=== PATIENT | female | born 1990 | race Two or more races ===

== ENCOUNTER 2016-12-31 16:12 | Emergency (ER) | payer OTHER ==
[2016-12-31 17:44] LABS: ABSOLUTE EOSINOPHILS # (AUTO) 0.3 10^3/uL (0.0-0.6); ABSOLUTE LYMPHOCYTES (AUTO) 2.5 10^3/uL (0.5-4.7); ABSOLUTE MONOCYTES (AUTO) 0.4 10^3/uL (0.1-1.4); ABSOLUTE NEUT (AUTO) 6.2 10^3/uL (1.7-8.2); APPEARANCE,URINE SLIGHTLY-CLOUDY; BASOPHILS % (AUTO) 0.3 % (0-2); BILIRUBIN,URINE NEGATIVE (NEGATIVE); EOSINOPHILS % (AUTO) 2.9 % (0-6); GLUCOSE, URINE NEGATIVE (NEGATIVE); HEMATOCRIT 38.4 % (36.0-47.0); HEMOGLOBIN 13.3 g/dL (12.0-15.5); HGB HCT DIFFERENCE 1.5; KETONES,URINE NEGATIVE (NEGATIVE); LEUKOCYTE ESTERASE,URINE NEGATIVE (NEGATIVE); LYMPHOCYTES % (AUTO) 26.7 % (13-45); MEAN CORPUSCULAR HEMOGLOBIN 30.2 pg (27.0-33.4); MEAN CORPUSCULAR HGB CONC 34.6 g/dL (32.0-36.0); MEAN CORPUSCULAR VOLUME 87 fl (80-97); MONOCYTES % (AUTO) 4.6 % (3-13); NITRITE,URINE NEGATIVE (NEGATIVE); PROTEIN,URINE NEGATIVE (NEGATIVE); RED CELL DISTRIBUTION WIDTH 13.4 % (11.5-14.0); SEGMENTED NEUTROPHILS % (AUTO) 65.5 % (42-78); UROBILINOGEN,URINE NEGATIVE mg/dL (<2.0); WHITE BLOOD COUNT 9.5 10^3/uL (4.0-10.5)
[2016-12-31 17:59] LABS: ALANINE AMINOTRANSFERASE 42 U/L (9-52); ALBUMIN 4.6 g/dL (3.5-5.0); ALKALINE PHOSPHATASE 66 U/L (38-126); ANION GAP 14 (5-19); ASPARTATE AMINO TRANSFERASE 25 U/L (14-36); BILIRUBIN,DIRECT 0.4 mg/dL (0.0-0.4); BILIRUBIN,TOTAL 0.5 mg/dL (0.2-1.3); BLOOD UREA NITROGEN 7 mg/dL (7-20); CALCIUM 9.9 mg/dL (8.4-10.2); CARBON DIOXIDE 25 mmol/L (22-30); CHLORIDE 101 mmol/L (98-107); CREATININE RESULT 0.51 mg/dL (0.52-1.25); GLUCOSE 87 mg/dL (75-110); POTASSIUM 4.1 mmol/L (3.6-5.0); SODIUM 140.1 mmol/L (137-145); TOTAL PROTEIN 7.5 g/dL (6.3-8.2)
--- NOTE | 2016-12-31 18:25 | RADIOLOGY REPORT (SQ) ---
EXAM DESCRIPTION: U/S OB TRANSVAG W/DOPPLER COMPLETED DATE/TIME: 12/31/2016 6:03 pm REASON FOR STUDY: abd pain +preg COMPARISON: None. TECHNIQUE: Transvaginal static and realtime grayscale images acquired of the pelvis. Additional sloane cted spectral and color Doppler images recorded. All images stored on PACs. bHCG: Pending. LIMITATIONS: None. FINDINGS: FETUS: Living intrauterine . EGA: 6 weeks, 5 days TOR: 08/21/2017 FHR: 126 beats per minute. SUBCHORIONIC BLEED: No SIZE OF BLEED: Not applicable. UTERUS: No masses. No anomalies. CERVICAL LENGTH: 3.2 cm Closed. RIGHT ADNEXA: Ovary not identified. No adnexal free fluid. No adnexal masses. LEFT ADNEXA: Ovary not identified. No adnexal free fluid. No adnexal masses. FREE FLUID: None. OTHER: No other significant finding. IMPRESSION: LIVING INTRAUTERINE . EGA 6 weeks, 5 days Trimester of : First - 0 to 13 weeks. TECHNICAL DOCUMENTATION: JOB ID: [id number] [employer]- All Rights Reserved
[2016-12-31 19:02] VITALS: BP 150/74
--- NOTE | 2016-12-31 19:06 | ER Document Report ---
ED General - General Chief Complaint: Vag Bleeding, +preg <12wks Stated Complaint: PELVIC PAIN Time Seen by Provider: 12/31/16 16:47 TRAVEL OUTSIDE OF THE [place] IN LAST 30 DAYS: No - HPI Patient complains to provider of: Vaginal bleeding left lower pelvic pain Notes: Patient coming of the symptoms ongoing for approximately 2 3 days. Patient states she denies he is patient denies any fever chills nausea vomiting diarrhea. Denies any vaginal discharge states slight vaginal bleeding. Patient otherwise does not have ultrasound to confirm IUP this patient is a . - Related Data Allergies/Adverse Reactions: hydrocodone Allergy (Verified 12/31/16 16:51) morphine Allergy (Verified 12/31/16 16:51) peanut butter Allergy (Uncoded 12/31/16 16:51) Past Medical History - General Last Menstrual Period: 11/11/16 - Social History Smoking Status: Never Smoker Frequency of alcohol use: None Drug Abuse: None Family History: Reviewed & Not Pertinent Patient has suicidal ideation: No Patient has homicidal ideation: No Renal/ Medical History: Denies: Hx Peritoneal Dialysis Review of Systems - Review of Systems Constitutional: No symptoms reported EENT: No symptoms reported Cardiovascular: No symptoms reported Respiratory: No symptoms reported Gastrointestinal: Abdominal pain Genitourinary: No symptoms reported Female Genitourinary: No symptoms reported Musculoskeletal: No symptoms reported Skin: No symptoms reported Hematologic/Lymphatic: No symptoms reported Neurological/Psychological: No symptoms reported Physical Exam - Vital signs Vitals: Temp Pulse Resp BP Pulse Ox 99.4 F 88 16 134/72 H 100 12/31/16 16:27 12/31/16 16:27 12/31/16 16:27 12/31/16 16:27 12/31/16 16:27 Interpretation: Normal - General General appearance: Appears well, Alert - HEENT Head: Normocephalic, Atraumatic Eyes: Normal Pupils: PERRL - Respiratory Respiratory status: No respiratory distress Chest status: Nontender Breath sounds: Normal Chest palpation: Normal - Cardiovascular Rhythm: Regular Heart sounds: Normal auscultation Murmur: No - Abdominal Inspection: Normal Distension: No distension Bowel sounds: Normal Tenderness: Nontender Organomegaly: No organomegaly - Back Back: Normal, Nontender - Extremities General upper extremity: Normal inspection, Nontender, Normal color, Normal ROM , Normal temperature General lower extremity: Normal inspection, Nontender, Normal color, Normal ROM , Normal temperature, Normal weight bearing. No: Kathryn's sign - Neurological Neuro grossly intact: Yes Cognition: Normal Orientation: AAOx4 Evelio Coma Scale Eye Opening: Spontaneous [place] Coma Scale Verbal: Oriented Evelio Coma Scale Motor: Obeys Commands Evelio Coma Scale Total: 15 Speech: Normal Motor strength normal: LUE, RUE, LLE, RLE Sensory: Normal - Psychological Associated symptoms: Normal affect, Normal mood - Skin Skin Temperature: Warm Skin Moisture: Dry Skin Color: Normal Course - Re-evaluation Re-evalutation: 12/31/16 20:57 Patient coming in for evaluation of abdominal pain and . Patient states slight vaginal bleeding. Ultrasound does not show any acute abnormality. Patient will be discharged on follow-up with primary care physician. Patient is to continue her vitamins. - Vital Signs Vital signs: Temp Pulse Resp BP Pulse Ox 99.4 F 95 18 150/74 H 100 12/31/16 19:01 12/31/16 19:01 12/31/16 19:01 12/31/16 19:01 12/31/16 19:01 - Laboratory Result Diagrams: 12/31/16 17:00 12/31/16 17:00 Laboratory results interpreted by me: 12/31/16 17:00 Creatinine 0.51 L Beta HCG, Quant 04955.00 H Discharge - Discharge Clinical Impression: Bleeding in early Disposition: HOME, SELF-CARE Instructions: Bleeding During Early ([facility]), Pelvic Pain in ( [facility]) Additional Instructions: Your ultrasound does not show any abnormalities. Your lab work also does not show any abnormalities. More likely her pain is related to round ligament pain or your body is getting used to a growing fetus in your body. He may take the medication as prescribed for nausea he may also refer to the information below. For nausea and vomiting during I recomment: Start with 10-12.5 mg of pyridoxine (vitamin B6) three times a day for 2 days. If not fully effective, Increase to 12.5 mg of pyridoxine four times a day for 2 days. If not fully effective, Increase to 25 mg of pyridoxine three times a day for 2 days. If not fully effective, Continue 25 mg pyridoxine 3 times a day, and add 12.5 mg of doxylamine before bedtime each day for 2 days. If not fully effective, Continue 25 mg pyridoxine 3 times a day, and take 12.5 mg of doxylamine twice a day. If not fully effective, Continue 25 mg pyridoxine 3 times a day, and take 12.5 mg of doxylamine three times a day. If not fully effective, Continue 25 mg pyridoxine 3 times a day, and 12.5 mg of doxylamine 3 times a day , while adding Emetrol, one to two tablespoons (15-30 cc) taken once or twice a day as needed. (Emetrol is an [id number] mixture of sugar syrups and phosphoric acid [phosphorylated carbohydrate solution]) that acts by soothing the actual wall of the gastrointestinal tract). If not fully effective, Consult with your doctor. Prescriptions: Metoclopramide HCl [Reglan] 5 mg PO Q6 #30 tablet
== END 2016-12-31 19:07 | disposition home or self-care (01) ==
LOC: ER 16:12
DX: O20.9 Hemorrhage in early pregnancy, unspecified (principal); Z88.6 Allergy status to analgesic agent; Z91.010 Allergy to peanuts
CPT/HCPCS: 36415; 76817; 80053; 81001; 83690; 84702; 85025; 93976; 99284

== ENCOUNTER 2017-03-17 17:53 | Emergency (ER) | payer OTHER ==
--- NOTE | 2017-03-17 19:22 | ER Document Report ---
ED Medical Screen (RME) - General Chief Complaint: Abdominal Pain Stated Complaint: ABDOMINAL PAIN Time Seen by Provider: 03/17/17 19:16 Mode of Arrival: Ambulatory Information source: Patient Notes: 26 yo female presents to ed for chest and back pain started yesterday abdominal pain started today sharp, no vaginal bleeding, states she was leaking something yesterday not sure if urine. still a little today, diagnosed flu on monday. 17 weeks . This patient was seen in E for triage, will have complete assessment by another provider. TRAVEL OUTSIDE OF THE [place] IN LAST 30 DAYS: No - Related Data Allergies/Adverse Reactions: hydrocodone Allergy (Verified 12/31/16 16:51) morphine Allergy (Verified 12/31/16 16:51) peanut butter Allergy (Uncoded 12/31/16 16:51) Past Medical History Renal/ Medical History: Denies: Hx Peritoneal Dialysis Physical Exam - Vital signs Vitals: Temp Pulse Resp BP Pulse Ox 98.5 F 93 18 109/59 L 99 03/17/17 18:15 03/17/17 18:15 03/17/17 18:15 03/17/17 18:15 03/17/17 18:15 Course - Vital Signs Vital signs: Temp Pulse Resp BP Pulse Ox 98.5 F 93 18 109/59 L 99 03/17/17 18:15 03/17/17 18:15 03/17/17 18:15 03/17/17 18:15 03/17/17 18:15
[2017-03-17 20:22] LABS: ABSOLUTE EOSINOPHILS # (AUTO) 0.1 10^3/uL (0.0-0.6); ABSOLUTE LYMPHOCYTES (AUTO) 1.6 10^3/uL (0.5-4.7); ABSOLUTE MONOCYTES (AUTO) 0.4 10^3/uL (0.1-1.4); ABSOLUTE NEUT (AUTO) 2.8 10^3/uL (1.7-8.2); BASOPHILS % (AUTO) 0.1 % (0-2); EOSINOPHILS % (AUTO) 1.8 % (0-6); HEMATOCRIT 31.7 % (36.0-47.0); HEMOGLOBIN 11.2 g/dL (12.0-15.5); LYMPHOCYTES % (AUTO) 32.4 % (13-45); MEAN CORPUSCULAR HEMOGLOBIN 30.8 pg (27.0-33.4); MEAN CORPUSCULAR HGB CONC 35.3 g/dL (32.0-36.0); MEAN CORPUSCULAR VOLUME 87 fl (80-97); MONOCYTES % (AUTO) 7.4 % (3-13); PLATELET COUNT 177 10^3/uL (150-450); RED BLOOD COUNT 3.64 10^6/uL (3.72-5.28); RED CELL DISTRIBUTION WIDTH 14.3 % (11.5-14.0); SEGMENTED NEUTROPHILS % (AUTO) 58.3 % (42-78); TOTAL CELLS COUNTED % (AUTO) 100 %; WHITE BLOOD COUNT 4.9 10^3/uL (4.0-10.5)
[2017-03-17 20:26] LABS: APPEARANCE,URINE CLEAR; BILIRUBIN,URINE NEGATIVE (NEGATIVE); COLOR,URINE STRAW; GLUCOSE, URINE NEGATIVE (NEGATIVE); KETONES,URINE NEGATIVE (NEGATIVE); LEUKOCYTE ESTERASE,URINE NEGATIVE (NEGATIVE); NITRITE,URINE NEGATIVE (NEGATIVE); PROTEIN,URINE NEGATIVE (NEGATIVE); URINE SPECIFIC GRAVITY 1.005; UROBILINOGEN,URINE NEGATIVE mg/dL (<2.0)
[2017-03-17 20:44] LABS: ALANINE AMINOTRANSFERASE 27 U/L (9-52); ALBUMIN 3.7 g/dL (3.5-5.0); ALKALINE PHOSPHATASE 45 U/L (38-126); ANION GAP 8 (5-19); ASPARTATE AMINO TRANSFERASE 28 U/L (14-36); BLOOD UREA NITROGEN 3 mg/dL (7-20); CALCIUM 8.7 mg/dL (8.4-10.2); CARBON DIOXIDE 24 mmol/L (22-30); CHLORIDE 105 mmol/L (98-107); GLUCOSE 81 mg/dL (75-110); POTASSIUM 3.9 mmol/L (3.6-5.0); SODIUM 137.4 mmol/L (137-145); TOTAL PROTEIN 5.9 g/dL (6.3-8.2)
--- NOTE | 2017-03-17 20:44 | RADIOLOGY REPORT (SQ) ---
EXAM DESCRIPTION: U/S OB 14+ TA/1 GEST W/DOPPLER COMPLETED DATE/TIME: 03/17/2017 8:35 pm REASON FOR STUDY: 17 weeks leaking something COMPARISON: 12/31/2016. TECHNIQUE: Static and Dynamic grayscale imaging performed of gravid uterus using transabdominal appr oach. Additional selected color Doppler and spectral images recorded. All stored on PACS. LIMITATIONS: None. FINDINGS: EGA: 18 week. TOR: 08/18/2017. EFW: 209 grams PERCENTILE: Not applicable. Fetus less than or equal to 20 weeks gestation. VINI: Adequate amount. PLACENTA: Anterior. GRADE: I PRESENTATION: Cephalic. ANATOMY: HEART RATE: 171 beats per minute. FOUR CHAMBER HEART: Visualized. THREE VESSEL CORD: Yes. CORD INSERTION: Poorly visualized. KIDNEYS AND BLADDER: Kidneys poorly visualized. STOMACH: Visualized. Appears normal. SPINE: Poorly visualized. BRAIN AND LATERAL VENTRICLES: Poorly visualized. OTHER: No other significant finding. MATERNAL ADNEXA: Maternal ovaries not visualized. CERVICAL LENGTH: 2.9 cm. Closed. OTHER: No other significant finding. IMPRESSION: LIVING INTRAUTERINE . ESTIMATED GESTATIONAL AGE 18 WEEK. LIMITED VISUALIZATION OF THE ANATOMY WITH NO GROSS ABNORMALITIES. Trimester of : Second trimester - 13 weeks 1 day to 27 weeks 6 days. TECHNICAL DOCUMENTATION: JOB ID: [id number] [employer]- All Rights Reserved
[2017-03-17 20:45] LABS: BILIRUBIN,TOTAL < 0.1 mg/dL (0.2-1.3)
[2017-03-17] MEDS ORDERED: ONDANSETRON ODT 4 MG TAB (6 TAB/ER DISP) PO PRN (21:33)
--- NOTE | 2017-03-17 21:34 | ER Document Report ---
ED General - General Chief Complaint: Abdominal Pain Stated Complaint: ABDOMINAL PAIN Time Seen by Provider: 03/17/17 19:16 Mode of Arrival: Ambulatory Notes: Patient is a 26-year-old female at approximately 18 weeks by last menstrual period who presents with cough, shortness of breath, body aches, nausea and vomiting. Patient was diagnosed with influenza several days ago and states that her symptoms have persisted. She notes that she has had persistent diarrhea in association with the above symptoms and that intermittently there are streaks of blood mixed with mucus in the diarrhea. She says she passed a small clot in her stool today which concerned her enough to come to the emergency department. She also notes that she has been concerned about possible leaking fluid during this since onset of her symptoms as each time she coughs she leaks some fluid. She has been taking Tylenol with moderate improvement of her symptoms. Nothing worsens her symptoms. She denies any headache, neck pain, altered mental status, focal weakness or numbness, or focal abdominal pain. No vaginal bleeding. TRAVEL OUTSIDE OF THE [place] IN LAST 30 DAYS: No - Related Data Allergies/Adverse Reactions: hydrocodone Allergy (Verified 03/17/17 19:19) morphine Allergy (Verified 03/17/17 19:19) peanut butter Allergy (Uncoded 03/17/17 19:19) Past Medical History - General Information source: Patient - Social History Smoking Status: Never Smoker Chew tobacco use (# tins/day): No Frequency of alcohol use: None Drug Abuse: None Lives with: Spouse/Significant other Family History: Reviewed & Not Pertinent Patient has suicidal ideation: No Patient has homicidal ideation: No Pulmonary Medical History: Reports: Hx Asthma Renal/ Medical History: Denies: Hx Peritoneal Dialysis Review of Systems - Review of Systems Notes: Constitutional: Positive for fever. HENT: Negative for sore throat. Eyes: Negative for visual changes. Cardiovascular: Negative for chest pain. Respiratory: Negative for shortness of breath. Positive for cough Gastrointestinal: Negative for abdominal pain, positive for vomiting and diarrhea Genitourinary: Negative for dysuria. Musculoskeletal: Negative for back pain. Skin: Negative for rash. Neurological: Negative for headaches, weakness or numbness. 10 point ROS negative except as marked above and in HPI. Physical Exam - Vital signs Vitals: Temp Pulse Resp BP Pulse Ox 98.5 F 93 18 109/59 L 99 03/17/17 18:15 03/17/17 18:15 03/17/17 18:15 03/17/17 18:15 03/17/17 18:15 Interpretation: Normal Notes: PHYSICAL EXAMINATION: GENERAL: Well-appearing, well-nourished and in no acute distress. HEAD: Atraumatic, normocephalic. EYES: Pupils equal round and reactive to light, extraocular movements intact, sclera anicteric, conjunctiva are normal. ENT: nares patent, oropharynx clear without exudates. Moderately dry mucous membranes. NECK: Normal range of motion, supple without lymphadenopathy LUNGS: Breath sounds clear to auscultation bilaterally and equal. No wheezes rales or rhonchi. HEART: Regular rate and rhythm without murmurs ABDOMEN: Soft, gravid uterus, nontender, normoactive bowel sounds. No guarding , no rebound. No masses appreciated. EXTREMITIES: Normal range of motion, no pitting or edema. No cyanosis. NEUROLOGICAL: No focal neurological deficits. Moves all extremities spontaneously and on command. PSYCH: Normal mood, normal affect. SKIN: Warm, Dry, normal turgor, no rashes or lesions noted. Course - Re-evaluation Re-evalutation: 03/17/17 21:29 Patient presents with cough, vomiting, diarrhea, and fever at home consistent with a flulike illness and she has formally been diagnosed with flu several days ago. Patient has had several bloody bowel movements but denies any chuck hematochezia and does not have clinically significant anemia on laboratories today. Clinical history and exam is not consistent with an acute bacterial meningitis, encephalitis, pneumonia, there is no evidence of a cellulitis on examination. Patient likewise denies any urinary symptoms. Urinalysis without any evidence of a pyelonephritis. Patient does not have any focal abdominal tenderness to suggest an acute biliary pathology, acute appendicitis, acute mesenteric ischemia, bowel obstruction, bowel, or any other life-threatening acute intra-abdominal pathology as the etiology of the fever and additional symptoms today. Patient did report a concern of possible fluid leakage in the setting of her . Transvaginal ultrasound shows a closed cervix, normal amniotic fluid levels. Labs are otherwise unremarkable. Patient is tolerated oral intake without difficulty. Vitals at time of reassessment are within normal limits. At this time will discharge with return precautions and follow-up recommendations. Verbal discharge instructions given a the bedside and opportunity for questions given. Medication warnings reviewed. Patient is in agreement with this plan and has verbalized understanding of return precautions and the need for primary care follow-up in the next 24-72 hours. - Vital Signs Vital signs: Temp Pulse Resp BP Pulse Ox 98.5 F 93 12 111/64 100 03/17/17 18:15 03/17/17 18:15 03/17/17 22:29 03/17/17 22:29 03/17/17 22:29 - Laboratory Result Diagrams: 03/17/17 20:02 03/17/17 20:02 Laboratory results interpreted by me: 03/17/17 03/17/17 03/17/17 20:02 20:02 20:02 RBC 3.64 L Hgb 11.2 L Hct 31.7 L RDW 14.3 H BUN 3 L Creatinine 0.50 L Total Bilirubin < 0.1 L Total Protein 5.9 L Urine Ascorbic Acid 20 H - Diagnostic Test Radiology reviewed: Reports reviewed Discharge - Discharge Clinical Impression: Influenza, Persistent cough, Chest wall discomfort, Second trimester Diarrhea Qualifiers: Diarrhea type: presumed infectious Qualified Code(s): R19.7 - Diarrhea, unspecified Condition: Good Disposition: HOME, SELF-CARE Additional Instructions: Your symptoms are likely due to a viral infection either influenza or similar virus. The only treatment at this time is supportive care including drinking plenty of fluids, Tylenol and ibuprofen, as well as nausea medicines which you will be sent home with. Your symptoms will likely last for 7-10 days. Please return to the emergency department immediately if you become confused, have persistent vomiting, pass out, have severe headache, or have any other symptoms that are worrisome to you. Follow-up with your primary care doctor in the next several days.
[2017-03-17 22:33] VITALS: BP 111/64
--- NOTE | 2017-03-19 09:07 | EKG REPORT ---
SEVERITY:- NORMAL ECG - SINUS RHYTHM : Confirmed by: Marley Fatima 19-Mar-2017 09:06:20
== END 2017-03-17 22:33 | disposition home or self-care (01) ==
LOC: ER 17:53
DX: O26.92 Pregnancy related conditions, unspecified, second trimester (principal); J11.1 Influenza due to unidentified influenza virus with other respiratory manifestations; R07.9 Chest pain, unspecified; Z3A.18 18 weeks gestation of pregnancy; Z88.6 Allergy status to analgesic agent; Z91.010 Allergy to peanuts
CPT/HCPCS: 36415; 76805; 80053; 81001; 85025; 93005; 93010; 93976; 99284